=== PATIENT | female | born 1970 | race Two or more races ===

== ENCOUNTER 2018-04-06 15:24 | Emergency (ER) | payer OTHER ==
[~2018-04-06] VITALS: Ht 162.6 cm; Wt 74.4 kg
[~2018-04-06 15:24] MED LIST: KETO10TA2 PO; ORPH100T PO
== END 2018-04-06 19:00 | disposition home or self-care (01) ==
LOC: ER 15:24
DX: S80.02XA Contusion of left knee, initial encounter (principal); M62.830 Muscle spasm of back; G89.11 Acute pain due to trauma; M54.2 Cervicalgia; W01.0XXA Fall on same level from slipping, tripping and stumbling without subsequent striking against object, initial encounter; Y93.89 Activity, other specified; Y92.59 Other trade areas as the place of occurrence of the external cause; Y99.8 Other external cause status

== ENCOUNTER 2018-04-19 14:09 | Outpatient (CLI) | payer OTHER | END 2018-04-19 17:00 | disposition home or self-care (01) | LOC: RAD 14:09 | DX: M54.5 Low back pain (principal) ==

== ENCOUNTER 2018-05-30 09:34 | Outpatient (CLI) | payer OTHER | END 2018-05-30 09:50 | disposition home or self-care (01) | LOC: MRI 09:34 | DX: S86.812D Strain of other muscle(s) and tendon(s) at lower leg level, left leg, subsequent encounter (principal) | CPT/HCPCS: 73721 ==

== ENCOUNTER 2018-08-16 15:03 | Outpatient (CLI) | payer OTHER | END 2018-08-16 15:10 | disposition home or self-care (01) | LOC: MAMO-SONO 15:03 | DX: Z12.31 Encounter for screening mammogram for malignant neoplasm of breast (principal); N64.89 Other specified disorders of breast ==

== ENCOUNTER → 2018-08-17 09:36 | Outpatient (CLI) | payer OTHER | END | disposition home or self-care (01) | LOC: LAB 09:36 | DX: R03.0 Elevated blood-pressure reading, without diagnosis of hypertension (principal); Z13.1 Encounter for screening for diabetes mellitus; Z12.11 Encounter for screening for malignant neoplasm of colon ==

== ENCOUNTER 2018-08-28 15:24 | Outpatient (CLI) | payer OTHER | END 2018-08-28 15:27 | disposition home or self-care (01) | LOC: SONOGRAMA 15:24 | DX: Z12.31 Encounter for screening mammogram for malignant neoplasm of breast (principal); N64.89 Other specified disorders of breast ==

== ENCOUNTER 2018-11-23 08:30 | Emergency (ER) | payer OTHER ==
[~2018-11-23] VITALS: Ht 162.6 cm; Wt 74.4 kg
== END 2018-11-23 14:11 | disposition home or self-care (01) ==
LOC: ER 08:30
DX: M54.6 Pain in thoracic spine (principal)

== ENCOUNTER 2020-03-07 09:38 | Outpatient (CLI) | payer OTHER | END 2020-03-07 13:06 | disposition home or self-care (01) | LOC: MAMO-SONO 09:38 | DX: Z12.31 Encounter for screening mammogram for malignant neoplasm of breast (principal); Z87.898 Personal history of other specified conditions; N63.10 Unspecified lump in the right breast, unspecified quadrant; N63.20 Unspecified lump in the left breast, unspecified quadrant ==

== ENCOUNTER 2020-08-19 17:43 | Outpatient (CLI) | payer OTHER | END 2020-08-19 19:14 | disposition home or self-care (01) | LOC: PPH VACUNA 17:43 | DX: Z23 Encounter for immunization (principal) ==

== ENCOUNTER 2021-05-20 12:52 | Outpatient (CLI) | payer OTHER | END 2021-05-21 07:25 | disposition home or self-care (01) | LOC: SONOGRAMA 12:52 | PROVIDERS: ATTEND Specialist | DX: Z12.31 Encounter for screening mammogram for malignant neoplasm of breast (principal); D24.2 Benign neoplasm of left breast; D24.1 Benign neoplasm of right breast; R10.2 Pelvic and perineal pain; N64.59 Other signs and symptoms in breast ==

== ENCOUNTER 2021-07-31 08:00 | Outpatient (CLI) | payer OTHER | END 2021-07-31 08:30 | disposition home or self-care (01) | LOC: PPH VACUNA 08:00 | PROVIDERS: ATTEND Emergency Medicine Pediatric Emergency Medicine | DX: Z23 Encounter for immunization (principal) ==

== ENCOUNTER 2021-08-13 10:20 | Outpatient (CLI) | payer OTHER | END 2021-08-13 10:25 | disposition home or self-care (01) | LOC: PPH VACUNA 10:20 | PROVIDERS: ATTEND Emergency Medicine Pediatric Emergency Medicine | DX: Z23 Encounter for immunization (principal) ==

== ENCOUNTER 2022-03-02 08:00 | Outpatient (CLI) | payer OTHER | END 2022-03-02 08:30 | disposition home or self-care (01) | LOC: PPH VACUNA 08:00 | PROVIDERS: ATTEND Emergency Medicine Pediatric Emergency Medicine | DX: Z23 Encounter for immunization (principal) ==

== ENCOUNTER 2022-07-28 14:47 | Outpatient (CLI) | payer OTHER | END 2022-07-28 14:52 | disposition home or self-care (01) | LOC: PPH VACUNA 14:47 | PROVIDERS: ATTEND Emergency Medicine Pediatric Emergency Medicine | DX: Z23 Encounter for immunization (principal) ==

== ENCOUNTER 2023-07-04 14:32 | Outpatient (CLI) | payer OTHER | END 2023-07-04 14:38 | disposition home or self-care (01) | LOC: RAD 14:32 | PROVIDERS: ATTEND Podiatrist Foot Surgery | DX: M77.41 Metatarsalgia, right foot (principal); M77.42 Metatarsalgia, left foot ==

== ENCOUNTER 2023-07-29 13:48 | Outpatient (CLI) | payer OTHER | END 2023-07-29 13:58 | disposition home or self-care (01) | LOC: PPH VACUNA 13:48 | PROVIDERS: ATTEND Emergency Medicine Pediatric Emergency Medicine | DX: Z23 Encounter for immunization (principal) | CPT/HCPCS: 90686; G0008 ==

== ENCOUNTER 2024-06-18 14:28 | Outpatient (CLI) | payer OTHER | END 2024-06-18 14:32 | disposition home or self-care (01) | LOC: MAMO-SONO 14:28 | PROVIDERS: ATTEND Specialist | DX: N63.0 Unspecified lump in unspecified breast (principal); Z12.31 Encounter for screening mammogram for malignant neoplasm of breast ==

== ENCOUNTER 2024-06-26 12:12 | Outpatient (CLI) | payer OTHER | END 2024-06-26 12:18 | disposition home or self-care (01) | LOC: SONOGRAMA 12:12 | PROVIDERS: ATTEND Specialist | DX: R10.2 Pelvic and perineal pain (principal) ==

== ENCOUNTER 2024-07-27 06:06 | Inpatient (IN) | payer OTHER ==
[2024-07-23 13:31] LABS: HEMATOCRIT 39.9 % (36.0-45.00); HEMOGLOBIN 13.4 g/dL (12.0-15.00); MEAN CELL VOLUME 88.6 fL (80.00-100.00); MEAN CORPUSCULAR HEMOGLOBIN 29.8 pg (27.00-32.0); MEAN CORPUSCULAR HGB CONC 33.7 g/dl (32.0-36.0); PLATELET COUNT 277 K/uL (150-450); RED BLOOD COUNT 4.51 M/uL (4.00-6.00); RED CELL DISTRIBUTION WIDTH 14.4 % (11.5-14.5); URINE APPEARANCE Clear; URINE BILIRRUBIN Negative (NEGATIVE); URINE BLOOD Moderate; URINE COLOR Yellow; URINE GLUCOSE Negative (NEGATIVE); URINE KETONE Negative (NEGATIVE); URINE LEUKOCYTE Negative; URINE NITRATE Negative; URINE PROTEIN Negative (NEGATIVE); URINE UROBILINOGEN 0.2 E.U./dl
[2024-07-23 13:35] LABS: URINE BACTERIA 172.5 uL (0.0-1933); URINE EPITHELIAL CELLS 13.2 uL (0.0-38.8); URINE RBC 10.9 uL (0.0-20.8); URINE WBC 5.7 uL (0.0-23.2)
[2024-07-23 14:32] VITALS: BP 120/84
[2024-07-23 14:35] LABS: ALBUMIN 3.9 gm/dL (3.4-5.0); BILIRUBIN TOTAL 0.47 mg/dL (0.3-1.2); CREATININE SERUM 0.75 mg/dL (0.55-1.02); GFR 80.23; GLOBULINA 3.6 G/DL (2.4-3.5); POTASSIUM 4.27 mEq/L (3.5-5.1); TOTAL PROTEIN 7.5 gm/dL (6.4-8.2)
[2024-07-23 14:50] LABS: INR 0.99; PARTIAL THROMBOPLASTIN TIME 29.6 SECONDS (22.0-34.0); PROTHROMBIN TIME 10.8 SECONDS (9.0-11.5)
[~2024-07-27] VITALS: Ht 162.6 cm; Wt 80.7 kg
[2024-07-27] MEDS ORDERED: CEFAZOLIN SODIUM 1,000 MG VIAL ONE ×3 (07:35→12:15)
[2024-07-27] MEDS ORDERED: SUGAMMADEX SODIUM 200 MG/2 ML VIAL IV ONE (09:38)
[2024-07-27] MEDS ORDERED: PROMETHAZINE HCL 50 MG/ML AMPUL IM PRN (11:30)
[2024-07-27] MEDS ORDERED: RINGERS SOLUTION,LACTATED 1,000 ML IV SCH (11:30)
[2024-07-27] MEDS ORDERED: MEPERIDINE HCL/PF 50 MG/ML VIAL IM PRN (11:30)
[2024-07-27] MEDS ORDERED: MORPHINE SULFATE 4 MG/ML VIAL IV ONE ×2 (12:05→12:35)
[2024-07-27] MEDS ORDERED: MEPERIDINE HCL 50 MG/ML AMPUL IM ONE (13:35)
[2024-07-27] MEDS ORDERED: PROMETHAZINE HCL 50 MG/ML AMPUL IM ONE (13:35)
[2024-07-27] MEDS ORDERED: PROMETHAZINE HCL 25 MG/ML AMPUL ONE (13:47)
[2024-07-27] MEDS ORDERED: CEFAZOLIN SODIUM 1,000 MG VIAL IV SCH (14:00)
[2024-07-27 15:14] VITALS: BP 120/84
[2024-07-27 17:33] VITALS: BP 128/82
[2024-07-27 23:53] VITALS: BP 115/75
[2024-07-28 05:00] VITALS: BP 129/81
[2024-07-28 07:53] LABS: HEMATOCRIT 36.5 % (36.0-45.00); HEMOGLOBIN 12.4 g/dL (12.0-15.00); MEAN CELL VOLUME 89.1 fL (80.00-100.00); MEAN CORPUSCULAR HEMOGLOBIN 30.3 pg (27.00-32.0); PLATELET COUNT 236 K/uL (150-450); RED BLOOD COUNT 4.09 M/uL (4.00-6.00); RED CELL DISTRIBUTION WIDTH 14.4 % (11.5-14.5)
[2024-07-28 09:17] VITALS: BP 132/86
[2024-07-28] MEDS ORDERED: OxyCODONE HCL/APAP UD (PERCOCET) PO PRN (09:45)
[2024-07-28 16:00] VITALS: BP 128/85
[2024-07-29 00:17] VITALS: BP 126/83
[2024-07-29 08:00] VITALS: BP 128/80
[2024-07-29] MEDS ORDERED: IBUprofen 600 MG TABLET PO PRN (10:30)
[2024-07-29 16:04] VITALS: BP 113/78
[2024-07-29 23:29] VITALS: BP 109/76
[2024-07-30] MEDS ORDERED: IBUPROFEN800 MG PO (07:54)
[2024-07-30 08:08] VITALS: BP 115/80
== END 2024-07-30 09:36 | disposition home or self-care (01) | DRG 743 ==
LOC: O/R 06:06 → SURH 08:30 → OB/GYN 12:56 → SURH 13:08 → OB/GYN 16:06
PROVIDERS: ADMIT Specialist; ATTEND Specialist
PROC: 0UT70ZZ Resection of Bilateral Fallopian Tubes, Open Approach (ICD-10-PCS; 2024-07-27)
PROC: 0UT20ZZ Resection of Bilateral Ovaries, Open Approach (ICD-10-PCS; 2024-07-27)
PROC: 0UT90ZZ Resection of Uterus, Open Approach (ICD-10-PCS; principal; 2024-07-27 08:30)
DX: D25.2 Subserosal leiomyoma of uterus (principal); N80.03 Adenomyosis of the uterus; Z20.822 Contact with and (suspected) exposure to COVID-19; Z90.710 Acquired absence of both cervix and uterus

== ENCOUNTER 2024-09-24 11:15 | Outpatient (CLI) | payer OTHER ==
[~2024-09-24 11:15] MED LIST changes: +IBUPROFEN800 MG PO
== END 2024-09-24 11:25 | disposition home or self-care (01) ==
LOC: PPH VACUNA 11:15
PROVIDERS: ATTEND Emergency Medicine Pediatric Emergency Medicine
DX: Z23 Encounter for immunization (principal)

== ENCOUNTER 2024-12-19 15:18 | Outpatient (CLI) | payer OTHER ==
[~2024-12-19 15:18] MED LIST changes: +DICLOFENAC POTA50 MG PO; +METAXALONE800 MG PO
== END 2024-12-19 15:23 | disposition home or self-care (01) ==
LOC: RAD 15:18
PROVIDERS: ATTEND Physical Medicine & Rehabilitation
DX: M77.11 Lateral epicondylitis, right elbow (principal); M75.82 Other shoulder lesions, left shoulder

== ENCOUNTER 2024-12-20 09:16 | Outpatient (CLI) | payer OTHER | END 2024-12-20 09:18 | disposition home or self-care (01) | LOC: SONOGRAMA 09:16 | PROVIDERS: ATTEND Physical Medicine & Rehabilitation | DX: M75.82 Other shoulder lesions, left shoulder (principal) ==

== ENCOUNTER 2025-06-18 15:17 | Outpatient (CLI) | payer OTHER ==
[2025-06-20 05:07] LABS: HEPATITIS A ANTIBODY IGG Negative (Negative); HEPATITIS B SURFACE ANTIBODY Equivocal (.); HEPATITIS C VIRUS ANTIBODY Non Reactive (Non Reactive)
== END 2025-06-18 15:29 | disposition home or self-care (01) ==
LOC: LAB 15:17
DX: A64 Unspecified sexually transmitted disease (principal); B19.9 Unspecified viral hepatitis without hepatic coma

== ENCOUNTER 2025-09-03 10:04 | Outpatient (CLI) | payer OTHER | END 2025-09-03 10:10 | disposition home or self-care (01) | LOC: MAMO-SONO 10:04 | PROVIDERS: ATTEND Surgery | DX: N60.11 Diffuse cystic mastopathy of right breast (principal); N60.12 Diffuse cystic mastopathy of left breast ==

== ENCOUNTER 2025-09-25 09:45 | Outpatient (CLI) | payer OTHER | END 2025-09-25 09:55 | disposition home or self-care (01) | LOC: PPH VACUNA 09:45 | PROVIDERS: ATTEND Emergency Medicine Pediatric Emergency Medicine | DX: Z23 Encounter for immunization (principal) ==